=== PATIENT | female | born 1965 | race Caucasian/White ===

== ENCOUNTER 2017-12-05 14:18 | Emergency (ER) | payer SELFPAY ==
[~2017-12-05] VITALS: Ht 157.5 cm; Wt 55.0 kg
[2017-12-05 14:23] VITALS: BP 116/56; PULSE 95; RESP 16; TEMP 97.8; O2SAT 99
--- NOTE | 2017-12-05 15:15 | RADRPT ---
EXAM DATE: 12/05/2017 3:00 PM EDT AGE/SEX: 52 years / Female INDICATIONS: Right thumb pain after a sign fell on hand. CLINICAL DATA: This is the patient's initial encounter. Patient reports that signs and symptoms have been present for 1 day and indicates a pain score of 10/10. MEDICAL/SURGICAL HISTORY: None. None. COMPARISON: No prior [facility] exams available for comparison. FINDINGS: Bony structures are intact and in normal alignment. Osseous density is normal. Soft tissues are unre markable. No radiopaque foreign bodies seen. CONCLUSION: No acute findings. 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 Electronically signed by: Anthony Bolanos MD 12/05/2017 3:14 PM EDT
--- NOTE | 2017-12-05 15:23 | PD ---
HPI Chief Complaint: Injury Time Seen by Provider: 14:33 Travel History International Travel<30 days: No Contact w/Intl Traveler<30days: No Traveled to known affect area: No History of Present Illness HPI 52-year-old female presents emergency department with injury to the right thumb. Patient states she was at a restaurant when the wind blew a sign all, and landed on the first webspace of the right hand. She now has pain in this area. She is questioning possible fracture. She was seen by paramedics who recommended her getting seen here. Splint was applied prior to arrival. There is no open wound. She has no other injury. Pain is currently 6 out of 10. She has no known drug allergies. PFSH Past Medical History Hx Anticoagulant Therapy: Yes (ASA 325MG) Social History Alcohol Use: Yes Tobacco Use: Yes Substance Use: No Allergies-Medications (Allergen,Severity, Reaction): Coded Allergies: No Known Allergies (Unverified , 12/05/17) Review of Systems Except as stated in HPI: all other systems reviewed are Neg General / Constitutional: No: Fever Eyes: No: Visual changes HENT: No: Headaches Cardiovascular: No: Chest Pain or Discomfort Respiratory: No: Shortness of Breath Gastrointestinal: No: Abdominal Pain Genitourinary: No: Dysuria Musculoskeletal: No: Pain Skin: No Rash Neurologic: No: Weakness Psychiatric: No: Depression Endocrine: No: Polydipsia Hematologic/Lymphatic: No: Easy Bruising Physical Exam Narrative GENERAL: Patient appears in no acute distress SKIN: Warm and dry. Normal color. Normal turgor. There is ecchymosis at the base of the right thumb at the MIP joint. No abrasions or open wounds HEAD: Atraumatic. Normocephalic. EYES: Pupils equal and round. No scleral icterus. No injection or drainage. ENT: No nasal bleeding or discharge. Mucous membranes pink and moist. Pharynx clear. Airways patent. NECK: Trachea midline. Supple and nontender CARDIOVASCULAR: Regular rate and rhythm. RESPIRATORY: No accessory muscle use. Clear to auscultation. Breath sounds equal bilaterally. GASTROINTESTINAL: Abdomen soft, non-tender, nondistended. Hepatic and splenic margins not palpable. MUSCULOSKELETAL: Extremities without clubbing, cyanosis, or edema. No obvious deformities. Patient has tenderness at the base of the right thumb, however range of motion is intact, and only moderately tender with motion or palpation. NEUROLOGICAL: Awake and alert. No obvious cranial nerve deficits. Motor grossly within normal limits. Five out of 5 muscle strength in the arms and legs. Normal speech. PSYCHIATRIC: Appropriate mood and affect; insight and judgment normal. Data Data Last Documented VS Vital Signs Date Time Temp Pulse Resp B/P (MAP) Pulse Ox O2 Delivery O2 Flow Rate FiO2 12/05/17 14:23 97.8 95 16 116/56 (76) 99 Orders Orders Hand, Complete ([id number]) (12/05/17 14:35) Ice/Cold Pack (12/05/17 14:35) Splinting (12/05/17 ) MDM Medical Decision Making Medical Screen Exam Complete: Yes Emergency Medical Condition: Yes Differential Diagnosis Right thumb contusion. Right thumb sprain. Right thumb fracture. Narrative Course Ice is applied to the affected area X-ray of the right thumb shows no acute fracture or dislocation Patient be placed in a thumb spica splint for comfort Patient is given ibuprofen 600 mg 4 times daily as needed #40. Patient can use splint as needed for comfort over the next week Patient to follow-up with her primary care physician if symptoms persist Diagnosis Primary Impression: Contusion of right thumb without damage to nail, initial encounter Referrals: Primary Care Physician Patient Instructions: Finger Sprain (ED), General Instructions Additional Instructions: X-ray of the right thumb shows no acute fracture or dislocation Patient be placed in a thumb spica splint for comfort Patient is given ibuprofen 600 mg 4 times daily as needed #40. Patient can use splint as needed for comfort over the next week Patient to follow-up with her primary care physician if symptoms persist Med/Other Pt SpecificInfo: Prescription(s) given Disposition: 01 DISCHARGE HOME Condition: Stable Hai Espitia December 05, 2017 15:22
[2017-12-05] MEDS ORDERED: IBUP-232 PO (15:27)
== END 2017-12-05 16:13 | disposition home or self-care (01) ==
LOC: NEPK 14:18
DX: S60.011A Contusion of right thumb without damage to nail, initial encounter (principal); W22.8XXA Striking against or struck by other objects, initial encounter; Y92.511 Restaurant or cafe as the place of occurrence of the external cause; Z72.0 Tobacco use
CPT/HCPCS: 29125; 73130